=== PATIENT | female | born 1955 | race Caucasian/White ===

== ENCOUNTER → 2018-07-04 11:23 | Outpatient (CLI) | payer BC ==
[2010-10-22 09:05] VITALS: BMI 21.1
--- NOTE | 2018-07-13 12:11 | ST ---
PATIENT:KAL GARCIA MEDICAL RECORD: [id number] SEX: F LOCATION:[facility] ORDER #: ADMISSION DATE: 07/04/18 AGE OF PATIENT: 62 REFERRING PHYSICIAN: INTERPRETING PHYSICIAN: THERESA LEONARD MD DATE OF SERVICE: 07/04/2018 NUCLEAR STRESS TEST INDICATION: Angina, palpitations. Family history of coronary artery disease. The patient was exercised on standard Hollis protocol for 5 minutes, terminated due to achievement of maximum target heart rate response with 28 mCi of sestamibi injected at peak stress, 11 mCi were used previously for rest images. FINDINGS: Gated SPECT reveals preserved ejection fraction at 67% with good wall motioning and thickening and brightening throughout all segments. SPECT imaging Cardiolite was used as myocardial fusion agent. There is reversibility anteriorly, this includes the basal, mid apical and anterior segments. The degree of reversibility is mild to moderate. The amount of myocardial involved is moderate. OVERALL IMPRESSION: This is an abnormal nuclear stress test with reversibility anteriorly. Gated SPECT reveals preserved ejection fraction at 67% in this patient with ongoing symptomatology. The current scan does suggest the presence of hemodynamically significant coronary artery disease. We will proceed with coronary angiography as follow up study. TRANSINT:[id number] Voice Confirmation ID: [id number] DOCUMENT ID: [id number] THERESA LEONARD MD at 1211 CC: [id number] DICTATION DATE: 07/06/18 1526 BOWL ATTENDANT: 07/06/182000 DEP CLI 07/04/18 [place] [address]
== END | disposition home or self-care (01) ==
LOC: D.HCCARDIO 11:23
DX: I20.9 Angina pectoris, unspecified (principal); R00.2 Palpitations; Z82.49 Family history of ischemic heart disease and other diseases of the circulatory system

== ENCOUNTER 2018-07-19 11:01 | Outpatient (CLI) | payer BC ==
[~2018-07-19] VITALS: Ht 160 cm; Wt 53.6 kg
--- NOTE | ~2018-07-19 | HEMODYNAMI ---
PATIENT:KAL GARCIA MEDICAL RECORD: [id number] : 51 LOCATION:[facility] ADMISSION DATE: 07/19/18 Generatedon:07/19/201814:04 Patient name: KAL GARCIA Patient #: [id number] SSN: D OB: 1955 Date of study: 07/19/2018 Page: Of Hemodynamic Procedure Report Patient Data Patient Demographics Procedure consent was obtained First Name: KAL Gender: Female Last Name: RADHA : 1955 Middle Initial: D Age: 62 year(s) Patient #: [id number] Race: Unknown Additional ID: [id number] Contact details Address: [address] State: [place] City: [place] Zip code: [address] Past Medical History Allergies Allergen Reaction Date Comments Reported Other allergy 07/19/2018 Sulfa,morphine Admission Admission Data Admission Date: 07/19/2018 Admission Time: 11:01 Admit Source: Other Lab Results Lab Result Date: 07/19/2018 Lab Result Time: 11:30 Biochemistry Name Units Result Min Max BUN mg/dl 19 --(----)*- 7 18 Creatinine mg/dl 0.9 --(-*--)-- 0.6 1.3 CBC Name Units Result Min Max Hematocrit % 35.1 *-(----)-- 42 54 Hemoglobin g/dl 12.1 *-(----)-- 13.5 17.5 Procedure Procedure Types Cath Procedure Diagnostic Procedure C [facility] w/Coronaries Sedation Charges Moderate Sedation up to 15 minutes PCI Procedure Coronary Stent Coronary Stent Initial Procedure Description Procedure Date Procedure Date: 07/19/2018 Procedure Start Time: 13:40 Procedure End Time: 14:01 Procedure Staff Name Function Elliot Dias MD Performing Physician Maura Rodriguez RT Monitor Dustin King RT Scrub Hanh Dee RN Nurse Procedure Data Cath Procedure Fluoroscopy Diagnostic fluoroscopy Total fluoroscopy Time: 6 time: 6 min min Diagnostic fluoroscopy Total fluoroscopy dose: 418 dose: 418 mGy mGy Contrast Material Contrast Material Type Amount (ml) Isovue 300 120 Entry Location Entry Primary Successful Side Size Upsize Upsize Entry Closure Lozano ccessful Closure Location (Fr) 1 (Fr) 2 (Fr) Remarks Device Remarks Radial Right 6 Fr Mechanical artery Short Compression Estimated blood loss: 10 ml Diagnostic catheters Device Type Used For End Catheter Placement DIAGNOSTIC Marcus 110cm 5 Procedure Fr catheter ([id number]) DIAGNOSTIC Pigtail 5Fr Procedure catheter ([id number]) Procedure Complications No complications Procedure Medications Medication Administration Route Dosage 0.9% NaCl I.V. 100 ml/hr Oxygen etCO2 Nasal cannula 2 l/min Lidocaine 2% added to field 20 Heparin Flush Bag added to field 2 bags (1000units/500ml NS) Radial Cocktail added to field 1 syringe (Verapomil 2mg/Nitro 400mcg/Heparin 1500units) Versed I.V. 2 mg Fentanyl I.V. 50 mcg Versed I.V. 1 mg Fentanyl I.V. 25 mcg Heparin Bolus I.V. 5000 units Integrilin (Bolus I.V. 5 ml 2mg/ml) Plavix P.O. 600 mg Hemodynamics Rest HGB: 12.1 (g/dl) Heart Rate: 84 (bpm) Pressure Samples Time Site Value (mmHg) Purpose Heart Use Rate(bpm) 13:47 LV 156/-17,11 Snapshot 84 13:48 AO 136/66(100) Pullback 84 13:48 LV 131/10,15 Pullback 84 Gradients Valve Time Site 1 Site 2 Mean SEP/DFP Peak To Heart Use (mmHg) (sec/min) Peak Rate (mmHg) (bpm) Aortic 13:48 LV AO 0 9 0 84 131/10,15 136/66(100) Calculations Valve P-P Mean Valve Index Valve Source Name Gradient Area Flow (cm2) Aortic 0 0 0 0 Snapshots Pre Cath Intra NCS Post Cath Vital Signs Time Heart Resp SPO2 etCO2 NIBP (mmHg) Rhythm Pain Sedation Rate (ipm) (%) (mmHg) Status Level (bpm) 13:29:15 90 12 100 33 153/80(120) NSR 0 (11) 10(A) , No pain 13:33:40 78 13 100 28.5 141/63(111) NSR 0 (11) 10(A) , No pain 13:38:02 75 14 100 33 139/65(100) NSR 0 (11) 10(A) , No pain 13:42:26 77 10 100 28.2 120/61(97) NSR 0 (11) 9(A) , No pain 13:46:44 81 13 99 11.2 126/66(90) NSR 0 (11) 9(A) , No pain 13:51:00 93 11 99 29 121/68(104) NSR 0 (11) 9(A) , No pain 13:55:16 79 14 99 29 124/63(96) NSR 0 (11) 9(A) , No pain 13:59:34 87 10 100 31.5 133/65(92) NSR 0 (11) 10(A) , No pain Medications Time Medication Route Dose Verified Delivered Reason Not es Effectiveness by by 13:28:06 0.9% NaCl I.V. 100 Elliot Hanh used for ml/hr [facility] procedure MD VILLARREAL 13:28:12 Oxygen etCO2 2 l/min Elliot Hanh used for Nasal [facility] procedure cannula MD VILLARREAL 13:28:18 Lidocaine 2% added 20ml Elliot Chowdhuryory for local to vial [facility] anesthetic field MD GUZMAN 13:28:22 Heparin Flush added 2 bags Elliot Zarate used for Bag to [facility] procedure (1000units/500ml field MD GUZMAN NS) 13:28:28 Radial Cocktail added 1 Elliot Chowdhuryory used for (Verapomil to syringe [facility] procedure 2mg/Nitro field MD GUZMAN 400mcg/Heparin 1500units) 13:33:23 Versed I.V. 2 mg Elliot Hanh for sedation [facility] MD, RN 13:33:31 Fentanyl I.V. 50 mcg Elliot Hanh for sedation [facility] MD, RN 13:38:12 Versed I.V. 1 mg Elliot Hanh for sedation [facility] MD, RN 13:38:17 Fentanyl I.V. 25 mcg Elliot Hanh for sedation [facility] MD, RN 13:50:22 Heparin Bolus I.V. 5000 Elliot Hanh for luzma ified units [facility] anticoagulation with Dr. MD VILLARREAL [place] 13:50:35 Integrilin I.V. 5 ml Elliot Hanh for was jose (Bolus 2mg/ml) [facility] anticoagulation 5mL RN 13:50:48 Plavix P.O. 600 mg Elliot Soler antiplatelet RN therapy Procedure Log Time Note 13:06:23 Informed consent obtained and on chart 13:06:26 Admit Source: Other 13:07:12 Diagnostic Cath status Elective 13:07:13 Time tracking: Regular hours (M-F 7:00 - 5:00) 13:07:17 Plan of Care:Hemodynamics will remain stable., Cardiac rhythm will remain stable., Comfort level will be maintained., Respiratory function will remain adequate., Patient/ family verbilizes understanding of procedure., Procedure tolerated without complication., Recovers from procedure without complications.. 13:07:22 H&P Date Dictated: 07/19/2018 New H&P dictated by physician.. 13:08:33 Patient allergic to Other allergySulfa,morphine 13:09:07 Lab Result : Hemoglobin 12.1 g/dl 13:09:07 Lab Result : Creatinine 0.9 mg/dl 13:09:07 Lab Result : BUN 19 mg/dl 13:09:07 Lab Result : Hematocrit 35.1 % 13:09:21 Dustin King RT(R) sent for patient. Start room use. 13:18:28 Patient received from Pre/Post Procedure Room to CCL 1 Alert and oriented. Tansferred to table in Supine position. 13:18:29 Warm blankets applied, and tom hugger turned on for patient comfort. 13:18:29 Correct patient and procedure confirmed by team. 13:18:30 ECG and BP/O2 sat monitors applied to patient. 13:27:52 Vital chart was started 13:28:06 0.9% NaCl 100 ml/hr I.V. was administered by Hanh Dee RN; used for procedure; 13:28:12 Oxygen 2 l/min etCO2 Nasal cannula was administered by Hanh Dee RN; used for procedure; 13:28:18 Lidocaine 2% 20ml vial added to field was administered by Elliot Dias MD; for local anesthetic; 13:28:22 Heparin Flush Bag (1000units/500ml NS) 2 bags added to field was administered by Elliot Dias MD; used for procedure; 13:28:28 Radial Cocktail (Verapomil 2mg/Nitro 400mcg/Heparin 1500units) 1 syringe added to field was administered by Elilot Dias MD; used for procedure; 13:31:12 Baseline sample Acquired. 13:31:15 Rhythm: sinus rhythm 13:31:17 Full Disclosure recording started 13:31:17 Pre-procedure instructions explained to patient. 13:31:17 Pre-op teaching completed and patient verbalized understanding. 13:31:19 Family in patients room. 13:31:21 Patient NPO since Midnight. 13:31:23 Is patient on blood thinner?No 13:31:24 Patient diabetic? No. 13:31:27 Patient not . Patient is over age 55. 13:31:29 Previous problem with sedation/anesthesia? No ? 13:31:29 Snore? Yes 13:31:30 Sleep apnea? No 13:31:31 Deviated septum? No 13:31:32 Opens mouth fully? Yes 13:31:32 Sticks out tongue? Yes 13:31:34 Airway obstruction? No ? 13:31:40 Dentures? Yes PARTIAL IN TIGHT 13:31:43 Modified Juliano's test Ulnar < 7 seconds 13:31:45 Patient pain scale 0/10 ?. 13:31:48 IV patent on arrival in left hand with 0.9% NaCl at [facility]. 13:31:50 Lab results completed and on chart. 13:31:52 Right Radial & Right Groin area was prepped with chlora-prep and draped in sterile fashion 13:31:53 Alarms reviewed by R. N. 13:31:54 Sharps counted by scrub and verified by R.N. 13:31:56 Use device set Radial Dx or PCI 13:31:57 ACIST Syringe (00738) opened to sterile field. 13:31:58 Medline Cath Pack ([id number]) opened to sterile field. 13:32:00 Bag Decanter () opened to sterile field. 13:32:01 ACIST Hand Control (75206) opened to sterile field. 13:32:01 ACIST Manifold (48453) opened to sterile field. 13:32:02 Tegaderm 4 x 4 (1626W) opened to sterile field. 13:32:04 MBrace Wrist Support ([id number]) opened to sterile field. 13:32:06 SHEATH 6FR Slender (80-1060) opened to sterile field. 13:32:18 EMERALD Guide Wire (179-632) opened to sterile field. 13:32:34 --------ALL STOP TIME OUT------ 13:32:34 Final Timeout: patient, procedure, and site verified with staff and physician. All members of the team are in agreement. 13:32:36 Right Radial & Right Groin site verified by team. 13:32:39 Fire Safety Assessment: A--An alcohol-based skin anteseptic being used preoperatively., C--Open oxygen or nitrous oxide is being used., D--An ESU, laser, or fiber-optic light is being used. 13:32:42 Physical assessment completed. ASA score P 2 - A patient with mild systemic disease as per Elliot Dias MD. 13:32:44 Sedation plan: IV Moderate Sedation Medication:Versed, Fentanyl 13:33:23 Versed 2 mg I.V. was administered by Hanh Dee RN; for sedation; 13:33:31 Fentanyl 50 mcg I.V. was administered by Hanh Dee RN; for sedation; 13:36:40 Zero performed for pressure channel P1 13:38:12 Versed 1 mg I.V. was administered by Hanh Dee RN; for sedation; 13:38:17 Fentanyl 25 mcg I.V. was administered by Hanh Dee RN; for sedation; 13:39:50 Procedure started. 13:39:57 Zero performed for pressure channel P1 13:40:04 Zero performed for pressure channel P1 13:40:18 Local anesthetic to right radial artery with Lidocaine 2% by Elliot Dias MD.INITIAL ACCESS ONLY 13:40:59 A 6 Fr Short sheath was inserted into the Right Radial artery 13:41:31 A DIAGNOSTIC Marcus 110cm 5 Fr catheter (120174) was advanced over the wire and used for Procedure. 13:43:34 RCA angiography performed. 13:45:24 LCA angiography performed. 13:45:30 Catheter exchanged over wire. 13:46:34 A DIAGNOSTIC Pigtail 5Fr catheter ([id number]) was advanced over the wire and used for Procedure. 13:47:08 INFLATOR Merit BasixCompak (JM4416) opened to sterile field. 13:47:09 WHISPER 300cm guide wire ([id number]) opened to sterile field. 13:47:31 LV gram done using HARGROVE 13:47:36 Injector settings: Ml/sec: 7, Volume: 15, 13:48:02 LV hemodynamics recorded. 13:48:21 EF : 55 % 13:48:25 Catheter exchanged over wire. 13:49:50 GUIDE 6FR HS I catheter (LA6HSI) opened to sterile field. 13:50:12 6 Fr HS1 guide catheter was inserted over the wire 13:50:22 Heparin Bolus 5000 units I.V. was administered by Hanh Dee RN; for anticoagulation; verified with Dr. Barriga 13:50:35 Integrilin (Bolus 2mg/ml) 5 ml I.V. was administered by Hanh Dee RN; for anticoagulation; wasted 5mL 13:50:48 Plavix 600 mg P.O. was administered by Hanh Dee RN; for antiplatelet therapy; 13:52:43 WHISPER 300 wire advanced. 13:56:45 Wire advanced across lesion. 13:57:46 Place stent Inflation Number: 1 A DELL OTW 3.0 x 12 stent ([id number]) was prepped and advanced across the Mid RCA. The stent was deployed at 14 JONNY for 0:10 (min:sec). 13:58:13 Stent catheter was removed intact over wire. 13:58:13 Wire removed. 13:58:14 Guide catheter removed. 13:58:23 Procedure ended.(Physican Out) 13:59:01 ZEPHYR REGULAR TR BAND NO COST(722277) opened to sterile field. 13:59:39 Sheath removed intact; hemostasis achieved with Mechanical Compression to the Right Radial artery. 13:59:44 Fluoroscopy time 06.00 minutes. 13:59:49 Fluoroscopy dose: 418 mGy 13:59:49 Flurop Dose total: 418 13:59:53 Contrast amount:Isovue 300 120ml. 13:59:55 Sharps counted by scrub and verified by R.N. 13:59:57 TR band inflated with 11cc of air. 14:00:00 Post-procedure physical assessment completed. ASA score P 2 - A patient with mild systemic disease as per Elliot Dias MD. 14:00:03 Post procedure rhythm: sinus rhythm 14:00:04 Estimated blood loss: 10 ml 14:00:06 Post procedure instruction explained to patient.Patient verbalizes understanding. 14:00:06 Patient needs reinforcement of post procedure teaching. 14:00:31 Procedure type changed to Cath procedure, Diagnostic procedure, LHC, LHC w/Coronaries, Sedation Charges, Moderate Sedation up to 15 minutes, PCI procedure, Coronary Stent, Coronary Stent Initial 14:01:16 Procedure and supply charges have been captured, reviewed, submitted and are correct. 14:01:17 Procedure Complication : No complications 14:01:19 Vital chart was stopped 14:01:20 See physician's report for complete and final results. 14:01:21 Report given to Pre/Post Procedure Room. 14:01:28 Patient transfered to Pre/Post Procedure Room with Bed. 14:01:30 Procedure ended. 14:01:30 Full Disclosure recording stopped 14:01:33 End room use (Document Last) Intervention Summary Intervention Notes Time ActionType Lesion and Equipment Action# Pressure Duration Attributes Used 13:57:46 Place stent Mid RCA DELL OTW 3.0 1 14 00:10 x 12 stent ([id number]) Device Usage Item Name Manufacture Quantity Catalog Hospital Part Current Mini mal Lot# / Number Charge Number Stock Stock Serial# Code ACIST Syringe Acist 1 02258 411738 806927 537097 20 (08241) Medical Systems Inc Medline Cath Medline 1 [id number] 654374 79141 202000 5 Pack ([id number]) Bag Decanter Microtek 1 2001S 832186 96419 950960 5 (2001S) Medical Inc. ACIST Hand Acist 1 17935 249556 210781 536735 5 Control Medical (56687) Systems Inc ACIST Acist 1 12040 208444 003228 131394 5 Manifold Medical (23597) Systems Inc Tegaderm 4 x 3M 1 1626W 868137 653057 231429 5 4 (1626W) MBrace Wrist Advanced 1 140-0250-00 961193 03014 178695 5 Support Vascular (592383750) Dynamics SHEATH 6FR Terumo 1 [id number] 482979 395175 617636 5 Slender (80-1060) EMERALD Guide Cardinal 1 502-455 990323 997370 5 Wire Health (081-759) DIAGNOSTIC Terumo 1 48-1869 582968 265779 396641 5 Marcus 110cm 5 Fr catheter (504473) DIAGNOSTIC Cardinal 1 [id number] 613992 498394 647925 5 Pigtail 5Fr Health catheter (584387U) INFLATOR [facility] 1 BW6044 381133 262066 767458 15 [facility] Medical BasixCompak (MR4234) WHISPER 300cm Kay 1 [id number] 680137 122277 418246 5 guide wire Vascular (9224878VP) GUIDE 6FR HS Medtronic 1 LA6HSI 855943 36227 600738 1 I catheter (LA6HSI) DELL OTW 3.0 Medtronic 1 [id number] 302468 2403067 718314 5 [id number] x 12 stent ([id number]) ZEPHYR Cardinal 1 661619 019128 152793 5 REGULAR TR Health BAND NO COST(581408) Signature Audit Bristol Stage Time Signature Unsigned Intra-Procedure 07/19/2018 Maura Rodriguez 2:04:47 PM RT(R) Signatures Monitor : Maura Rodriguez Signature : RT Date : Time : [facility] [address] [place] [address]
[2018-07-19] MEDS ORDERED: KLONOPIN1 MG PO (11:17)
[2018-07-19] MEDS ORDERED: POTASSIUM99 M1 PO (11:17)
[2018-07-19] MEDS ORDERED: COZAAR100 MG PO (11:17)
[2018-07-19 11:22] VITALS: BP 125/50; Ht 160 cm; Wt 53.6 kg
[2018-07-19 11:52] LABS: HEMATOCRIT 35.1 % (36.0-48.0); HEMOGLOBIN 12.1 g/dL (12-16); LYMPHOCYTES 41.9 % (15-50); MCH 30.6 pg (26.0-34.0); MCHC 34.5 g/dL (31.0-37.0); MCV 88.6 fL (80.0-100.0); MEAN PLATELET VOLUME 9.8 fL (7.4-10.4); NEUTROPHILS 51.7 % (40-80); PLATELET COUNT 242 10x3/uL (130-400); RBC 3.96 10x6/uL (4.00-5.40); RDW 13.1 % (11.5-14.5); WBC 5.1 10x3/uL (4.8-10.8)
[2018-07-19 11:59] LABS: ANION GAP 12.7 mmol/L (8-16); CALCIUM 8.8 mg/dL (8.5-10.1); CREATININE - SERUM 0.9 mg/dL (0.6-1.3); POTASSIUM - SERUM 3.7 mmol/L (3.5-5.1)
--- NOTE | 2018-07-19 14:35 | NUR ---
RIGHT RADIAL Z BAND IN PLACE. NO BLEEDING/HEMATOMA NOTED. PT ON BEDPAN. VOIDED WITHOUT DIFFICULTY. FAMILY AT BEDSIDE.
[2018-07-19] MEDS ORDERED: PLAVIX75 MG PO (14:36)
[2018-07-19] MEDS ORDERED: BAYER CHEWABLE81 MG PO (14:36)
--- NOTE | 2018-07-19 15:05 | NUR ---
RIGHT RADIAL Z BAND IN PLACE. NO BLEEDING/HEMATOMA NOTED. VSS. FAMILY AT BEDSIDE.
--- NOTE | 2018-07-19 15:35 | NUR ---
RIGHT RADIAL Z BAND IN PLACE. NO BLEEDING/HEMATOMA NOTED. VSS. PT ATE FOOD THE FAMILY BROUGHT. DENIES NAUSEA.
--- NOTE | 2018-07-19 16:00 | NUR ---
PT ON BEDPAN. VOIDED WITHOUT DIFFICULTY. RIGHT WRIST TR BAND IN PLACE. NO BLEEDING/HEMATOMA NOTED. VSS.
--- NOTE | 2018-07-19 16:52 | NUR ---
DISCUSSED DISCHARGE INSTRUCTIONS WITH PT AND PT'S FAMILY. THEY VOICED UNDERSTANDING. REMOVED 3CC OF AIR FROM Z BAND. PT STARTED BLEEDING. ADDED BACK 2CC OF AIR AND NO BLEEDING/HEMATOMA NOTED. VSS.
--- NOTE | 2018-07-19 17:19 | NUR ---
3cc OF AIR REMOVED FROM Z BAND. PT TOLERATED WELL. NO BLEEDING/HEMATOMA NOTED. FAMILY AT BEDSIDE. VSS.
--- NOTE | 2018-07-19 17:38 | NUR ---
VERY SMALL OOZING NOTED FROM RIGHT RADIAL Z BAND SITE. ADDED BACK 2 CC OF AIR. NO MORE BLEEDING/HEMATOMA NOTED. LEAVING PT IN THE CARE OF PHIL GOMEZ.
--- NOTE | 2018-07-19 17:51 | NUR ---
PT SITTING UP IN BED, ALERT AND DENIES ANY C/O. Z-BAND IN PLACE WITH NO NEW BLEEDING OR HEMATOMA NOTED. FINGERS WARM AND CAP REFILL IS BRISK, FAMILY AT BEDSIDE, PT DENIES NEEDS AT THIS TIME.
--- NOTE | 2018-07-19 18:10 | NUR ---
3 CC OF AIR WEANED FROM Z BAND WITH NO BLEEDING NOTED. FIGNERS WARM AND CAP REFILL IS BRISK. PT DENIES ANY C/O. NSR, RATE IS 77. PT DENIES ANY C/O CHEST DISCOMFORT. FAMILY AT BEDSIDE.
--- NOTE | 2018-07-19 18:37 | NUR ---
2 CC OF AIR WEANED FROM Z BAND WITH NO BLEEDING NOTED.
--- NOTE | 2018-07-19 19:07 | NUR ---
1855 ALL REMIANING AIR WEANED FROM Z BAND WITH NO BLEEDING OR HEMATOMA NOTED. FINGERS WARM AND PULSE IS PALABLE.
--- NOTE | 2018-07-19 19:19 | NUR ---
TR BAND REMOVED AND 2X2, TEGADERM PLACED TO SITE. WRIST IMMOBILIZER IN PLACE. PT DENIES ANY C/O. DAUGHTER AT BEDSIDE.
--- NOTE | 2018-07-19 20:12 | NUR ---
1944 DRESSING REMAINS CDI, FINGERS WARM, CAP REFILL IS BRISK, PULSE PALPABLE. PT IS ALERT AND DENIES ANY C/O. BP READINGS LOW, BP CUFF NOT IN CORRECT PLACEMENT. CUFF PROPERLY PLACED AND BP RECHECKED AT 1941 AND READING IS 109/40. PRINTOUT FROM MONITOR IS NOT REFRESING TO INCLUDE THIS READING IN BP PRINTOUT. ASSISTED PT WITH DRESSING FOR DC TO HOME. 1949 ASSISTED PT TO RESTROOM VIA WC, PT VOIDED QS. IS ALERT AND DENIES ANY C/O. DRESSING CDI TO RIGHT WRIST, WRIST IMMOBILIZER IN PLACE. PT ESCORTED TO PRIVATE AUTO VIA WC BY NURSE WITH DAUGHTER DRIVING HER HOME. PT HAS ALL PERSONAL BELONGINGS AND DC INSTRUCTIONS AT TIME OF DC TO HOME.
--- NOTE | 2018-07-20 12:22 | OP ---
PATIENT NAME: KAL GARCIA MEDICAL RECORD: [id number] :51 LOCATION:[facility] ADMISSION DATE: SURGEON: JORGE A SÁNCHEZ MD DATE OF OPERATION: 07/19/2018 PROCEDURE: Left heart catheterization, selective coronary angiography, right radial approach. CATHETERS: A 5-Amharic sheath, 5/4 left and right Breezy, 5/4 pig. The procedure was well tolerated. We proceeded immediately to PTCA in the right. FINDINGS: Left ventriculography in 30-degree HARGROVE view; normal wall motion and normal systolic function. CORONARY ANATOMY: LEFT MAIN: Left main is free of disease. LAD: LAD has a hazy 80% stenosis in midportion. There is a small diameter ramus branch that has significant stenosis. CIRCUMFLEX: Codominant system, free of disease. RIGHT CORONARY ARTERY: Takeoff of RV branch has about 90% stenosis. PLAN: Intervention to the right with stent to the LAD at a later date. DESCRIPTION OF PROCEDURE: Using the indwelling radial sheath, hockey stick guiding catheter provided excellent guide catheter support followed by 300-cm Whisper wire placed across the tightly occluded right down this portion of the vessel. Stent deployed was 3.0 x 12 [place] drug-eluting stent up to 14 atmospheres. Final angiography shows excellent resolution of 80% to 90% right coronary stenosis with no significant residual. BRISSA flow was 3 throughout the procedure. There was jailing of the RV branch as expected. TRANSINT:[id number] Voice Confirmation ID: [id number] DOCUMENT ID: [id number] JORGE A SÁNCHEZ MD at 1222 CC: [id number] DICTATION DATE: 07/19/18 1411 LOAD MANAGER: 07/19/18 1726 DEP CLI 07/19/18 [place] [id number]
--- NOTE | 2018-07-20 14:37 | EC ---
PATIENT:KAL GARCIA DATE OF SERVICE: 07/19/18 SEX: F MEDICAL RECORD: [id number] DATE OF : [birth year] LOCATION:D.CAT AGE OF PATIENT: 62 ADMISSION DATE: 07/19/18 REFERRING PHYSICIAN: INTERPRETING PHYSICIAN: THERESA LEONARD MD ECHOCARDIOGRAM REPORT ECHO CHARGES 4 ECHO COMPLETE Date: 07/19/18 CLINICAL DIAGNOSIS: ANGINA ECHOCARDIOGRAPHIC MEASUREMENTS (adult normal given) AC root (d.<3.7cm) 2.7 cm LV Septum d (<1.2 cm> 1.2 cm Valve Excursion 1.0 cm LV Septum (systole) 1.4 cm Left Atria (s.<4.0cm> 2.9 cm LVPW d(<1.2cm) 1.2 cm RV (d.<2.3cm) 2.3 cm LVPW (sytole) 1.4 cm LV diastole(<5.6CM) 3.1 cm MV E-F(>70mm/sec) cm LV systole 2.1 cm LVOT Diameter 1.4 cm MV exc.(>10mm) 1.6 cm Est.ejection fraction (50-75%) % DOPPLER: LVIT cm/sec A 102 cm/sec E 91.0 cm/sec LA cm/sec RVSP 19 mmHg LVOT 93 cm/sec AOP1/2T m/s Asc. Ao 125 cm/sec RVOT 68 cm/sec RA cm/sec PA 104 cm/sec AV Gradient Peak 6.24 mmHg AV Mean 3.20 mmHg AV Area 1.2 cm MV Gradient Peak 3.88 mmHg MV Mean 1.58 mmHg MV Area cm COMMENTS: Silk Blocker: Yayo ORDAZ Pathology Laboratory Technologist: 3 Dr. Barriga TAPE# PACS Pericardial Effusion N DATE OF SERVICE: 07/19/2018 PROCEDURE: Echocardiogram. FINDINGS: 1. Left ventricular chamber size is within normal limits. Left ventricular systolic function is normal. Overall ejection fraction estimated at 65%. 2. Left atrium, right atrium, and right ventricle chamber sizes are within normal limits. 3. Valvular structures have normal structure and motion. ECHOCARDIOGRAM REPORT [id number] KAL GARCIA 4. Doppler interrogation reveals no significant valvular insufficiency or stenosis. 5. No evidence of pericardial effusion or left ventricular thrombus. TRANSINT:[id number] Voice Confirmation ID: [id number] DOCUMENT ID: [id number] THERESA LEONARD MD at 1437 CC: [id number] DICTATION DATE: 07/20/18 1028 MEDIA LAW FACULTY MEMBER: 07/20/18 1143 DEP CLI 07/19/18 [place] [id number] [place] [id number]
== END 2018-07-19 19:50 | disposition home or self-care (01) ==
LOC: D.CATH 11:01
PROVIDERS: Internal Medicine Interventional Cardiology
DX: I25.119 Atherosclerotic heart disease of native coronary artery with unspecified angina pectoris (principal); Z01.812 Encounter for preprocedural laboratory examination

== ENCOUNTER 2018-08-02 11:06 | Outpatient (CLI) | payer BC ==
--- NOTE | 2018-07-26 09:01 | HP ---
PATIENT: FLORINA GARCIA MEDICAL RECORD: [id number] ACCOUNT: [id number] LOCATION:[facility] : [birth year] ADMISSION DATE: 08/02/18 PCP: HISTORY AND PHYSICAL EXAMINATION HISTORY OF PRESENT ILLNESS: Florina Garcia is a 62-year-old female well-known to me with a history of coronary artery disease, status post recent angiography showing 2-vessel disease, coronary stenting to the right coronary, has been brought back in for revascularization of the LAD. PAST MEDICAL HISTORY: 1. History of coronary artery disease. 2. Cardiac arrhythmias with PVCs and PACs. 3. Hypertension. MEDICATIONS: Losartan/HCT 100/25 every day. ALLERGIES: SULFA AND MORPHINE. PHYSICAL EXAMINATION: GENERAL: Pleasant female, in no acute distress, appears stated age. HEENT: Normocephalic, atraumatic. NECK: No JVD or bruit. HEART: Regular. LUNGS: Rodriguez clear. ABDOMEN: Soft, nontender. EXTREMITIES: Pulse 2+ and equal. No edema. IMPRESSION: Coronary artery disease. PLAN: Intervention LAD. TRANSINT:[id number] Voice Confirmation ID: [id number] DOCUMENT ID: [id number] JORGE A SÁNCHEZ MD at 0901 CC: [id number] DICTATION DATE: 07/23/18 1426 REGROOVER: 07/23/18 1514 [facility] [address] [place] [address]
[~2018-08-02] VITALS: Ht 160 cm; Wt 53.6 kg
--- NOTE | ~2018-08-02 | HEMODYNAMI ---
PATIENT:KAL GARCIA MEDICAL RECORD: [id number] : 51 LOCATION:[facility] ADMISSION DATE: 08/02/18 Generatedon:08/02/201813:27 Patient name: KAL GARCIA Patient #: [id number] SSN: D OB: 1955 Date of study: 08/02/2018 Page: Of Hemodynamic Procedure Report Patient Data Patient Demographics Procedure consent was obtained First Name: KAL Gender: Female Last Name: RADHA : 1955 Middle Initial: D Age: 62 year(s) Patient #: [id number] Race: Unknown Additional ID: [id number] Contact details Address: [address] State: [place] City: [place] Zip code: [address] Past Medical History Allergies Allergen Reaction Date Comments Reported Other allergy 07/19/2018 Sulfa,morphine Other allergy 08/02/2018 Sulfa Admission Admission Data Admission Date: 08/02/2018 Admission Time: 11:06 Lab Results Lab Result Date: 08/02/2018 Lab Result Time: 11:30 Biochemistry Name Units Result Min Max BUN mg/dl 29 --(----)-* 7 18 Creatinine mg/dl 1.1 --(--*-)-- 0.6 1.3 CBC Name Units Result Min Max Hematocrit % 35.5 *-(----)-- 42 54 Hemoglobin g/dl 12 *-(----)-- 13.5 17.5 Procedure Procedure Types Cath Procedure Diagnostic Procedure Sedation Charges Moderate Sedation up to 15 minutes PCI Procedure Coronary Stent Coronary Stent Initial Procedure Description Procedure Date Procedure Date: 08/02/2018 Procedure Start Time: 13:06 Procedure End Time: 13:27 Procedure Staff Name Function Elliot Dias MD Performing Physician Dustin King RT Monitor Gena Perez RT Scrub Anna Gonzalez RN Nurse Procedure Data Cath Procedure Fluoroscopy Diagnostic fluoroscopy Total fluoroscopy Time: 5.5 time: 5.5 min min Diagnostic fluoroscopy Total fluoroscopy dose: 5.5 dose: 5.5 mGy mGy Contrast Material Contrast Material Type Amount (ml) Isovue 300 75 Entry Location Entry Primary Successful Side Size Upsize Upsize Entry Closure Lozano ccessful Closure Location (Fr) 1 (Fr) 2 (Fr) Remarks Device Remarks Radial Right 6 Fr Mechanical artery Short Compression Estimated blood loss: 10 ml Procedure Complications No complications Procedure Medications Medication Administration Route Dosage Oxygen etCO2 Nasal cannula 2 l/min Lidocaine 2% added to field 20 Heparin Flush Bag added to field 2 bags (1000units/500ml NS) 0.9% NaCl I.V. 100 ml/hr Versed I.V. 1 mg Fentanyl I.V. 50 mcg Radial Cocktail I.A. 1 syringe (Verapomil 2mg/Nitro 400mcg/Heparin 1500units) Heparin Bolus I.V. 4000 units Nitroglycerin IC/IA Plavix P.O. 75 mg Hemodynamics Rest HGB: 12 (g/dl) Heart Rate: 73 (bpm) Snapshots Pre Cath Intra NCS Post Cath Vital Signs Time Heart Resp SPO2 etCO2 NIBP (mmHg) Rhythm Pain Sedation Rate (ipm) (%) (mmHg) Status Level (bpm) 12:50:39 76 13 100 34.5 145/68(107) NSR 0 (11) 10(A) , No pain 12:54:57 69 11 100 37.6 121/56(85) NSR 0 (11) 10(A) , No pain 12:59:15 70 11 100 18.8 121/52(84) NSR 0 (11) 10(A) , No pain 13:03:33 67 10 99 29.2 115/56(76) NSR 0 (11) 10(A) , No pain 13:07:47 70 11 99 32.3 94/56(84) NSR 0 (11) 9(A) , No pain 13:12:42 76 11 97 36 128/67(96) NSR 0 (11) 9(A) , No pain 13:16:58 77 16 98 34.5 116/61(84) NSR 0 (11) 9(A) , No pain 13:21:12 81 11 98 35.3 114/59(81) NSR 0 (11) 10(A) , No pain 13:25:24 75 7 99 24 123/58(81) NSR 0 (11) 10(A) , No pain Medications Time Medication Route Dose Verified Delivered Reason Not es Effectiveness by by 12:56:31 Oxygen etCO2 2 l/min Elliot Castillo used for Nasal St Jim Gonzalez RN procedure cannula 12:56:37 Lidocaine 2% added 20ml Elliot Zarate for local to vial [facility] anesthetic field MD GUZMAN 12:56:44 Heparin Flush added 2 bags Elliot Zarate used for Bag to [facility] procedure (1000units/500ml field MD GUZMAN NS) 12:56:54 0.9% NaCl I.V. 100 Elliot Castillo Per physician ml/hr St Jim Gonzalez RN, MD 13:03:38 Versed I.V. 1 mg Elliot Castillo for sedation St Jim Gonzalez RN, MD 13:03:43 Fentanyl I.V. 50 mcg Elliot Castillo for sedation [facility] Jim Gonzalez RN, MD 13:06:14 Radial Cocktail I.A. 1 Elliot Zarate for (Verapomil syringe [facility] vasodilation 2mg/Nitro MD GUZMAN 400mcg/Heparin 1500units) 13:07:02 Heparin Bolus I.V. 4000 Elliot Castillo for units St Jmi Gonzalez RN anticoagulation 13:21:50 Nitroglycerin mixed Elliot Zarate non e IC/IA and on [facility] given. table MD GUZMAN 13:24:16 Plavix P.O. 75 mg Elliot Castillo for pt [facility] Jim Gonzalez RN antiplatelet takes MD therapy hers at 5 pm. Procedure Log Time Note 12:20:36 Time tracking: Regular hours (M-F 7:00 - 5:00) 12:20:40 Plan of Care:Hemodynamics will remain stable., Cardiac rhythm will remain stable., Comfort level will be maintained., Respiratory function will remain adequate., Patient/ family verbilizes understanding of procedure., Procedure tolerated without complication., Recovers from procedure without complications.. 12:28:25 Lab Result : BUN 29 mg/dl 12:28:25 Lab Result : Creatinine 1.1 mg/dl 12:28:25 Lab Result : Hemoglobin 12 g/dl 12:28:25 Lab Result : Hematocrit 35.5 % 12:28:29 Lab results completed and on chart. 12:28:47 H&P Date Dictated: 07/19/2018 Within 30 days and on chart., H&P Addendum completed by physician on day of procedure. (MUST COMPLETE FOR ALL OUTPATIENTS). 12:29:08 Patient allergic to Other allergySulfa 12:30:08 Anna Gonzalez RN sent for patient. Start room use. 12:41:28 Patient received from Pre/Post Procedure Room to CCL 1 Alert and oriented. Tansferred to table in Supine position. 12:41:29 Warm blankets applied, and tom hugger turned on for patient comfort. 12:41:30 Correct patient and procedure confirmed by team. 12:41:31 Signed procedure consent form obtained from patient. 12:41:32 ECG and BP/O2 sat monitors applied to patient. 12:41:33 Pre-procedure instructions explained to patient. 12:41:33 Pre-op teaching completed and patient verbalized understanding. 12:41:34 Family in waiting room. 12:41:35 Patient NPO since Midnight. 12:41:37 Is the patient allergic to Iodine/contrast media? No. 12:41:41 Is patient on blood thinner?Yes 12:49:28 Vital chart was started 12:49:29 Baseline sample Acquired. 12:49:32 Rhythm: sinus rhythm 12:49:34 Full Disclosure recording started 12:50:28 Patient diabetic? No. 12:50:32 Previous problem with sedation/anesthesia? No ? 12:50:35 Snore? No 12:50:36 Sleep apnea? Yes 12:50:37 Deviated septum? No 12:50:38 Opens mouth fully? Yes 12:50:38 Sticks out tongue? Yes 12:50:44 Airway obstruction? No ? 12:50:51 Dentures? Yes lower partial in tight 12:52:35 Modified Juliano's test Ulnar < 7 seconds 12:52:44 Patient pain scale 0/10 ?. 12:52:56 IV patent on arrival in left wrist with 0.9% NaCl at [facility]. 12:53:00 Right Radial & Right Groin area was prepped with chlora-prep and draped in sterile fashion 12:53:00 Alarms reviewed by RBreanna N. 12:53:03 Pre procedure: right dorsailis pedis pulse 2+ Normal; easily identifiable; not easily obliterated 12:53:07 Use device set Radial Dx or PCI 12:53:07 ACIST Syringe (75192) opened to sterile field. 12:53:08 Medline Cath Pack ([id number]) opened to sterile field. 12:53:08 Bag Decanter (2001S) opened to sterile field. 12:53:09 ACIST Hand Control (81854) opened to sterile field. 12:53:10 ACIST Manifold (82478) opened to sterile field. 12:53:10 Tegaderm 4 x 4 (1626W) opened to sterile field. 12:53:10 MBrace Wrist Support ([id number]) opened to sterile field. 12:53:12 SHEATH 6FR Slender (80-4346) opened to sterile field. 12:53:13 DIAGNOSTIC WIRE .035 260cm J wire (461431) opened to sterile field. 12:53:25 WHISPER 300cm guide wire ([id number]) opened to sterile field. 12:56:31 Oxygen 2 l/min etCO2 Nasal cannula was administered by Anna Gonzalez RN; used for procedure; 12:56:37 Lidocaine 2% 20ml vial added to field was administered by Elliot Dias MD; for local anesthetic; 12:56:44 Heparin Flush Bag (1000units/500ml NS) 2 bags added to field was administered by Elliot Dias MD; used for procedure; 12:56:54 0.9% NaCl 100 ml/hr I.V. was administered by Anna Gonzalez RN; Per physician; 13:00:14 Zero performed for pressure channel P1 13:01:16 Zero performed for pressure channel P1 13:02:34 Physician arrived 13:02:34 --------ALL STOP TIME OUT------ 13:02:35 Final Timeout: patient, procedure, and site verified with staff and physician. All members of the team are in agreement. 13:02:41 Right Radial & Right Groin site verified by team. 13:02:45 Fire Safety Assessment: A--An alcohol-based skin anteseptic being used preoperatively., C--Open oxygen or nitrous oxide is being used., D--An ESU, laser, or fiber-optic light is being used. 13:02:49 Physical assessment completed. ASA score P 2 - A patient with mild systemic disease as per Elliot Dias MD. 13:02:54 Sedation plan: IV Moderate Sedation Medication:Versed, Fentanyl 13:03:30 WHISPER 300cm guide wire ([id number]) opened to sterile field. 13:03:31 CHOICE PT Extra Support 182cm wire ([id number]) opened to sterile field. 13:03:31 INFLATOR Valentin Henry (QW3491) opened to sterile field. 13:03:38 Versed 1 mg I.V. was administered by Anna Gonzalez RN; for sedation; 13::43 Fentanyl 50 mcg I.V. was administered by Anna Gonzalez RN; for sedation; 13:05:51 Procedure started. 13:06:01 Local anesthetic to right radial artery with Lidocaine 2% by Elliot Dias MD.INITIAL ACCESS ONLY 13:06:08 A 6 Fr Short sheath was inserted into the Right Radial artery 13:06:14 Radial Cocktail (Verapomil 2mg/Nitro 400mcg/Heparin 1500units) 1 syringe I.A. was administered by Elliot Dias MD; for vasodilation; 13:06:16 6 Fr xblad 3.5 guide catheter was inserted over the wire 13:07:02 Heparin Bolus 4000 units I.V. was administered by Anna Gonzalez RN; for anticoagulation; 13:09:39 whisper wire advanced. 13:13:10 Wire advanced across lesion. 13:20:09 Place stent Inflation Number: 1 A DELL RX 3.0 x 15 stent ([id number]) was prepped and advanced across the Prox LAD. The stent was deployed at 14 JONNY for 0:10 (min:sec). 13:20:48 Stent catheter was removed intact over wire. 13:20:49 Wire removed. 13:20:49 Guide catheter removed. 13:20:54 TR BAND Standard ([id number]) opened to sterile field. 13:21:02 Sheath removed intact; hemostasis achieved with Mechanical Compression to the Right Radial artery. 13:21:04 Procedure ended.(Physican Out) 13:21:50 Nitroglycerin IC/IA mixed and on table was administered by Elliot Dias MD; ; none given. 13:22:31 Fluoroscopy time 05.50 minutes. 13:23:22 Fluoroscopy dose: 5.5 mGy 13:23: Flurop Dose total: 5.5 13:23:27 Contrast amount:Isovue 300 75ml. 13:23:28 Sharps counted by scrub and verified by R.N. 13:23:40 TR band inflated with 12cc of air. 13:23:47 Insertion/operative site no bleeding no hematoma. 13:23:52 Post right radial artery:stable, soft, clean and dry 13:23:55 Post Procedure Pulses reassessed and unchanged 13:24:01 Post-procedure physical assessment completed. ASA score P 2 - A patient with mild systemic disease as per Elliot Dias MD. 13:24:03 Post procedure rhythm: unchanged. 13:24:05 Estimated blood loss: 10 ml 13:24:07 Post procedure instruction explained to patient.Patient verbalizes understanding. 13:24:08 Patient needs reinforcement of post procedure teaching. 13:24:16 Plavix 75 mg P.O. was administered by Anna Gonzalez RN; for antiplatelet therapy; pt takes hers at 5 pm. 13:24:20 Procedure type changed to Cath procedure, Diagnostic procedure, Sedation Charges, Moderate Sedation up to 15 minutes, PCI procedure, Coronary Stent, Coronary Stent Initial 13:24:38 Procedure and supply charges have been captured, reviewed, submitted and are correct. 13:27:02 Procedure Complication : No complications 13:27:03 Vital chart was stopped 13:27:04 See physician's report for complete and final results. 13:27:05 Report given to Pre/Post Procedure Room. 13:27:07 Patient transfered to Pre/Post Procedure Room with Stretcher. 13:27:09 Procedure ended. 13:27:09 Full Disclosure recording stopped 13:27:14 End room use (Document Last) Intervention Summary Intervention Notes Time ActionType Lesion and Equipment Used Action# Pressure Duration Attributes 13:20:[address] stent Prox LAD DELL RX 3.0 x 1 14 00:10 15 stent ([id number]) Device Usage Item Name Manufacture Quantity Catalog Number Hospital Part Current M inimal Lot# / Charge Number Stock Stock Serial# Code ACIST Syringe Acist 1 79035 263325 226617 599147 2 0 () Medical Systems Inc Medline Cath Medline 1 [id number] 072711 37777 028268 5 Pack ([id number]) Bag Decanter Microtek 1 [id number] 64249 055227 5 () Medical Inc. ACIST Hand Acist 1 33903 100967 751486 239897 5 Control Medical (46586) Systems Inc ACIST Manifold Acist 1 37522 490303 962991 663823 5 (32407) Medical Systems Inc Tegaderm 4 x 4 3M 1 1626W 673077 178068 473925 5 (1626W) MBrace Wrist Advanced 1 140-0250-00 084101 05505 749941 5 Support Vascular ([id number]) Dynamics SHEATH 6FR Terumo 1 [id number] 306218 570101 906586 5 Slender (80-1060) DIAGNOSTIC St [place] 1 742285 421854 886534 571852 3 0 WIRE .035 260cm J wire (285063) WHISPER 300cm Kay 2 [id number] 849554 336656 909508 5 guide wire Vascular (3152940BG) CHOICE PT [place] 1 [id number] 904607 047780 026625 5 Extra Support Scientific 182cm wire ([id number]) INFLATOR Merit Merit 1 [id number] 163154 486609 980294 1 5 CouplewisewvSWITCH Materials (YU5192) DELL RX 3.0 x Medtronic 1 [id number] 353325 9125415 758925 5 [id number] 15 stent ([id number]) TR BAND Terumo 1 [id number] 568786 178656 398931 4 0 Standard ([id number]) Signature Audit [place] Stage Time Signature Unsigned Intra-Procedure 08/02/2018 Dustin King 1:27:39 PM RT(R) Signatures Monitor : Dustin King RT Signature : Date : Time : [facility] [address], [place] [address]
[~2018-08-02 11:06] MED LIST: BAYER CHEWABLE81 MG PO; COZAAR100 MG PO; KLONOPIN1 MG PO; PLAVIX75 MG PO; POTASSIUM99 M1 PO
[2018-08-02 11:40] VITALS: BP 112/47; Ht 160 cm; Wt 53.6 kg
[2018-08-02 11:49] LABS: BASOPHILS 1.3 % (0-2); EOSINOPHILS 3.4 % (0-7); HEMATOCRIT 35.5 % (36.0-48.0); LYMPHOCYTES 35.1 % (15-50); MCH 30.1 pg (26.0-34.0); MCHC 33.8 g/dL (31.0-37.0); MEAN PLATELET VOLUME 9.9 fL (7.4-10.4); MONOCYTES 7.3 % (2-11); NEUTROPHILS 52.9 % (40-80); PLATELET COUNT 258 10x3/uL (130-400); RBC 3.99 10x6/uL (4.00-5.40); WBC 5.4 10x3/uL (4.8-10.8)
[2018-08-02 12:01] LABS: ANION GAP 11.4 mmol/L (8-16); CALCIUM 8.5 mg/dL (8.5-10.1); CARBON DIOXIDE 29.8 mmol/L (21.0-32.0); CREATININE - SERUM 1.1 mg/dL (0.6-1.3); POTASSIUM - SERUM 3.2 mmol/L (3.5-5.1)
--- NOTE | 2018-08-02 13:53 | NUR ---
PT SLEEPING, AWAKENS EASILY TO VERBAL STIMULI. TR BAND IS CDI TO RIGHT WRIST, NO BLEEDING OR HEMATOMA NOTED. FINGERS WARM AND CAP REFILL IS BRISK. VSS. RESP WITH EASE. MULTIPLE FAMILY AT BEDSIDE, CALL LIGHT IN REACH.
--- NOTE | 2018-08-02 14:23 | NUR ---
PT SITTING UP IN BED, DENIES ANY C/O. NSR, RATE 63. BP IS 122/52. TR BAND IS CDI, FINGERS WARM AND CAP REFILL IS BRISK. FAMILY AT BEDSIDE, PO FLUIDS AND SANDWICH OFFERED AND PT DECLINES AT THIS TIME.
--- NOTE | 2018-08-02 14:59 | NUR ---
TR BAND IS CDI, FINGERS WARM AND CAP REFILL IS BRISK. VSS. FAMILY AT BEDSIDE, CALL LIGHT IN REACH.
--- NOTE | 2018-08-02 16:09 | NUR ---
PT HAS VOIDED QS USING BEDPAN, TR BAND IS CDI TO RIGHT WRIST, NO BLEEDING OR HEMATOMA NOTED. FINGERS WARM AND CAP REFILL IS BRISK. PT IS ALERT AND DENIES ANY C/O. NSR, RATE 61. BP IS 114/42.
--- NOTE | 2018-08-02 16:39 | NUR ---
ATTEMPTED REMOVAL OF 2 CC OF AIR FROM TR BAND WITH IMMEDIATE OOZING NOTED AT CATH SITE. AIR REINSTILLED AND OOZING CEASED. FINGERS WARM AND CAP REFILL IS BRISK. VSS, FAMILY AT BEDSIDE. DENIES ANY NEEDS AT THIS TIME.
--- NOTE | 2018-08-02 17:09 | NUR ---
2 CC OF AIR WEANED FROM TR BAND WITH NO BLEEDING NOTED. FINGERS WARM AND CAP REFILL IS BRISK. PT IS ALERT AND DENIES ANY C/O. VSS. DAUGHTER AT BEDSIDE.
--- NOTE | 2018-08-02 17:13 | NUR ---
1655 2 CC OF AIR WEANED FROM TR BAND WITH NO BLEEDING NOTED. 1710 2 CC OF AIR WEANED FROM TR BAND WITH NO BLEEDING NOTED. FINGERS WARM AND CAP REFILL IS BRISK.
--- NOTE | 2018-08-02 17:27 | NUR ---
3 CC OF AIR WEANED FROM TR BAND WITH NO BLEEDING NOTED. FINGERS WARM AND CAP REFILL IS BRISK.
--- NOTE | 2018-08-02 17:55 | NUR ---
1740 ALL REMAINING AIR WEANED FROM TR BAND WITH NO BLEEDING NOTED. DC INSTRUCTIONS HAVE BEEN REVIEWED WITH PT AND DAUGHTER WHO VERBALIZE UNDERSTANDING. IV DC'D WITH CATH INTACT AND PT IS DRESSING FOR DC WITH ASSIST.
--- NOTE | 2018-08-02 18:24 | NUR ---
1800 PT HAS DRESSED FOR DC TO HOME, DENIES ANY C/O. 2X2 AND TEGADERM REMAIN CDI TO RIGHT WRIST, WRIST IMMOBILIZER IN PLACE. PULSES PALPABLE, PT DENIES ANY NV DEFICIT TO HAND. PT ESCORTED TO PRIVATE AUTO VIA WC BY NURSE WITH DAUGHTER DRIVING HER HOME. PT HAS ALL PERSONAL BELONGINGS AND DC INSTRUCTIONS AT TIME OF DC TO HOME.
--- NOTE | 2018-08-07 14:51 | HP ---
PATIENT: KAL GARCIA MEDICAL RECORD: [id number] ACCOUNT: [id number] LOCATION:[facility] : 51 ADMISSION DATE: 08/02/18 PCP: ASHLEE GALAVIZ MD HISTORY AND PHYSICAL EXAMINATION HISTORY OF PRESENT ILLNESS: A 62-year-old female with known history of coronary artery disease, status post recent intervention to the right coronary. She has residual disease in LAD, was brought in today for that purpose. She has been having still some intermittent angina. PAST MEDICAL HISTORY: 1. History of coronary artery disease as described above. 2. Hypertension. MEDICATIONS: Losartan 100/25 every day, aspirin 81 every day, Plavix 75 every day. ALLERGIES: MORPHINE AND SULFA. PHYSICAL EXAMINATION: GENERAL: Pleasant middle-aged female, in no acute distress. HEENT: Normocephalic, atraumatic. NECK: No JVD or bruit. HEART: Regular. II/ systolic ejection murmur. LUNGS: Good air excursion. ABDOMEN: Soft, nontender. EXTREMITIES: Pulse 2+ with no edema. IMPRESSION AND PLAN: Intervention to LAD. TRANSINT:[id number] Voice Confirmation ID: [id number] DOCUMENT ID: [id number] JORGE A SÁNCHEZ MD at 1459 CC: [id number] DICTATION DATE: 08/02/18 1349 VIROLOGIST: 08/02/18 1426 DEP CLI 08/02/18 [place] [id number] [place] [id number]
--- NOTE | 2018-08-07 14:51 | OP ---
PATIENT NAME: KAL GARCIA MEDICAL RECORD: [id number] :51 LOCATION:[facility] ADMISSION DATE: SURGEON: JORGE A SÁNCHEZ MD DATE OF OPERATION: 08/02/2018 PROCEDURE: PTCA and stent to LAD. DESCRIPTION OF PROCEDURE: After a radial sheath was placed in the right radial artery, XB LAD 3.5 catheter provided good guide catheter support followed by 300-cm Whisper wire placed across the 80% stenosed LAD down this portion of vessel. Stent deployed was 3.0 x 15 mm Petr drug-eluting stent up to 14 atmospheres for 45 seconds. Final angiography shows excellent resolution of 80% stenosis with no significant residual. BRISSA flow was 3 throughout the procedure. Heparin was used during the case. Sheath was closed with TR band. TRANSINT:[id number] Voice Confirmation ID: [id number] DOCUMENT ID: [id number] JORGE A SÁNCHEZ MD at 1451 CC: [id number] DICTATION DATE: 08/02/18 1350 COMPACTOR DRIVER: 08/02/18 1746 DEP CLI 08/02/18 [facility] [address] [place] [address]
== END 2018-08-02 18:00 | disposition home or self-care (01) ==
LOC: D.CATH 11:06
PROVIDERS: Internal Medicine Interventional Cardiology
DX: I25.119 Atherosclerotic heart disease of native coronary artery with unspecified angina pectoris (principal); I10 Essential (primary) hypertension